=== PATIENT | male | born 1945 | race Caucasian/White ===

== ENCOUNTER 2018-07-27 06:20 | Day surgery (SDC) | payer MEDICARE ==
[2018-07-27] MEDS ORDERED: PROPOFOL 10 MG/ML VIAL IV ONE (06:21)
[2018-07-27] MEDS ORDERED: FENTANYL PF 100MCG/2ML VIAL IV ONE (06:21)
[2018-07-27] MEDS ORDERED: LIDOCAINE 2% MDV (20MG/ML) 20ML VIAL IV ONE (06:21)
--- NOTE | 2018-07-30 11:21 | Operative Note ---
DATE OF SURGERY: 07/27/2018 SURGEON: Rex Rivera MD OPERATION: ESOPHAGOGASTRODUODENOSCOPY. INDICATIONS: This is a 73-year-old male with history of intermittent episodes of dysphagia who presented for esophagogastroduodenoscopy. POSTOPERATIVE DIAGNOSES: 1. Normal esophagus with no specific stricture. 2. Normal stomach and duodenum. ANESTHESIA: Sedation is per Anesthesia. Pulse oximetry was monitored throughout the procedure to maintain O2 saturation of 90% or greater. Supplemental oxygen was administered via nasal cannula. Cardiac and vital signs were monitored throughout the duration of the procedure, and they were stable. The procedure of esophagogastroduodenoscopy and risks and benefits of the procedure, including the risk of bleeding and perforation, among others, were explained to the patient who voiced understanding and agreed to have the procedure done. Physical examination was performed, and the patient was found stable for sedation. PROCEDURE: The patient was placed in the left lateral position. Sedation was initiated. A plastic bite block was inserted into the oral cavity. The Olympus [id number] gastroscope was introduced into the oral cavity and advanced to the proximal esophagus without difficulty. The esophageal mucosa was carefully examined upon introduction of the gastroscope. The proximal and mid and distal esophageal mucosa appeared normal. The gastroscope was then advanced into the stomach, and surveillance of the stomach revealed normal gastric fundus, body, and antrum. No ulcers were noted. There were no mass lesions or polyps noted. The gastroscope was then advanced to the descending duodenum without difficulty. The duodenal bulb and descending duodenum appeared normal. The gastroscope was then withdrawn into the stomach and retroflexion was performed. There were no other lesions noted. The gastroscope was then straightened and withdrawn while carefully examining the gastric and esophageal mucosa. No other lesions noted. Multiple mid esophageal biopsies were obtained to rule out eosinophilic esophagus. A Williamson dilator size 60 Vincentian was then passed into the stomach with mild resistance. The Williamson dilator was then withdrawn and procedures were terminated. The patient tolerated procedure well without any immediate complications. The patient remained with stable vital signs and was transferred to the recovery room. RECOMMENDATIONS: 1. The patient is to continue on his proton pump inhibitors. 2. I would be happy to see him back in the office as needed. Thank you for allowing me to participate in the care of your patient. CC: MD LOPEZ Culver
== END 2018-07-27 08:11 | disposition home or self-care (01) ==
LOC: HOP 06:20
PROVIDERS: ATTEND Internal Medicine Gastroenterology
DX: R13.10 Dysphagia, unspecified (principal)
CPT/HCPCS: 43239; 43450; 00731; J3010